=== PATIENT | male | born 1955 | race African-American/Black ===

== ENCOUNTER 2019-02-10 15:02 | Emergency (ER) | payer MEDICAID ==
[~2019-02-10] VITALS: Ht 172.7 cm; Wt 109.0 kg
[2019-02-10] MEDS ORDERED: OXYcodone/APAP 10/325MG TABLET ONE (15:50)
[2019-02-10] MEDS ORDERED: GABAPENTIN 300 MG CAPSULE ONE (15:50)
--- NOTE | 2019-02-10 15:56 | NUR ---
PT MED NOTED FOR CHRONIC NEUROPATHY
[2019-02-10] MEDS ORDERED: GABAPENTIN 300 MG CAPSULE PO ONE (16:00)
[2019-02-10] MEDS ORDERED: OXYcodone/APAP 10/325MG TABLET PO ONE (16:00)
[2019-02-10] MEDS ORDERED: OXYC20TA2 PO (16:01)
[2019-02-10] MEDS ORDERED: GABA600T7 PO (16:01)
[2019-02-10 16:12] VITALS: BP 162/89
== END 2019-02-10 16:26 | disposition home or self-care (01) ==
LOC: ED 16:20
DX: M54.9 Dorsalgia, unspecified (principal); Z76.0 Encounter for issue of repeat prescription; Z00.00 Encounter for general adult medical examination without abnormal findings
CPT/HCPCS: 99283